=== PATIENT | female | born 1945 | race Caucasian/White ===

== ENCOUNTER 2025-07-11 13:19 | Outpatient (RCR) | payer MEDICARE, SELFPAY ==
[2025-07-11 13:29] VITALS: BP 157/53
[2025-07-11] MEDS: PROLIA 60 MG SC (13:43)
== END 2025-07-12 09:17 | disposition home or self-care (01) ==
LOC: OID 13:19
PROVIDERS: ATTENDING PHYSICIAN Internal Medicine Endocrinology, Diabetes & Metabolism
DX: M81.0 Age-related osteoporosis without current pathological fracture (principal)
CPT/HCPCS: 96372; J0897